=== PATIENT | male | born 1985 | race Asian ===

== ENCOUNTER → 2018-02-08 | Outpatient (CLI) | payer OTHER | LOC: BMCIMAGING 08:27 | PROVIDERS: ATTEND Physician Assistant | DX: Z09 Encounter for follow-up examination after completed treatment for conditions other than malignant neoplasm (principal); S52.302D Unspecified fracture of shaft of left radius, subsequent encounter for closed fracture with routine healing; S52.202D Unspecified fracture of shaft of left ulna, subsequent encounter for closed fracture with routine healing ==